=== PATIENT | male | born 1965 | race Caucasian/White ===

== ENCOUNTER 2016-09-20 17:24 | Emergency (ER) | payer OTHER ==
[2016-09-20 20:03] LABS: HEMOGLOBIN 15.7 gm/dl (14.0-17.5); RED BLOOD COUNT 4.87 M/UL (4.20-5.50); WHITE BLOOD COUNT 6.9 K/UL (4.5-11.0)
== END 2016-09-20 20:55 | disposition left against medical advice (07) ==
LOC: ER1 17:24
PROVIDERS: Physician Assistant
DX: N17.9 Acute kidney failure, unspecified (principal); R44.1 Visual hallucinations; F17.210 Nicotine dependence, cigarettes, uncomplicated; Z79.891 Long term (current) use of opiate analgesic; Z79.899 Other long term (current) drug therapy
CPT/HCPCS: 36415; 36600; 70450; 71010; 80053; 82140; 82550; 82553; 82803; 83874; 84484; 85025; 85379; 87040; 99285; J7030

== ENCOUNTER 2020-09-05 12:09 | Emergency (ER) | payer OTHER | END 2020-09-05 18:15 | disposition short-term general hospital (02) | LOC: ER1 12:09 | DX: S02.85XA Fracture of orbit, unspecified, initial encounter for closed fracture (principal); S02.40FA Zygomatic fracture, left side, initial encounter for closed fracture; S02.40DA Maxillary fracture, left side, initial encounter for closed fracture; S42.001A Fracture of unspecified part of right clavicle, initial encounter for closed fracture; F17.210 Nicotine dependence, cigarettes, uncomplicated; Z23 Encounter for immunization; W01.0XXA Fall on same level from slipping, tripping and stumbling without subsequent striking against object, initial encounter; Y92.009 Unspecified place in unspecified non-institutional (private) residence as the place of occurrence of the external cause | CPT/HCPCS: 70450; 70486; 71045; 72125; 90471; 90715; 96372; 96374; 96375; 99284; J2270; J2405 ==

== ENCOUNTER → 2021-11-18 | Outpatient (CLI) | payer OTHER | LOC: EXRD 13:24 | DX: S69.92XA Unspecified injury of left wrist, hand and finger(s), initial encounter (principal) | CPT/HCPCS: 73100; 73130 ==